=== PATIENT | male | born 1985 | race Two or more races ===

== ENCOUNTER 2021-05-21 22:42 | Emergency (ER) | payer MEDICAID, OTHER ==
[~2021-05-21] VITALS: Ht 175.3 cm; Wt 79.8 kg
--- NOTE | 2021-05-21 23:10 | NUR ---
BB RA FOR AGITATION, BIZARRE BEHAVIOR. PT GIVEN VERSED 10 IM ARTILLERY OFFICER BY RA. PT SEDATED UPON ARRIVAL. BREATHS EQUAL AND UNLABORED. PT TO ER BED AND CONNECTED TO MONITOR. PT VITAL SIGNS STABLE. WILL CONT TO MONITOR PT.
[2021-05-21] MEDS ORDERED: OLANZAPINE 10 MG VIAL IM ONE ×2 (23:30→23:51)
[2021-05-21 23:41] LABS: BASOPHILS # (AUTO) 0.1 K/uL (0.0-0.2); BASOPHILS % (AUTO) 0.7 % (0.0-2.0); EOSINOPHILS % (AUTO) 1.1 % (0.0-6.0); HEMATOCRIT 37 % (39-51); HEMOGLOBIN 12.2 g/dL (13.5-17.5); LYMPHOCYTES # (AUTO) 2.2 K/uL (0.8-4.8); LYMPHOCYTES % (AUTO) 25.5 % (20.0-44.0); MEAN CORPUSCULAR HGB CONC 34 g/dl (31.0-36.0); MEAN CORPUSCULAR VOLUME 91 fL (80-96); MONOCYTES # (AUTO) 0.5 K/uL (0.1-1.30); NEUTROPHILS # (AUTO) 5.7 K/uL (1.8-8.9); NEUTROPHILS % (AUTO) 66.7 % (43.0-81.0); PLATELET COUNT (AUTO) 384 K/uL (150-450); RED BLOOD CELL COUNT(AUTO) 4.02 MIL/uL (4.5-6.0); WHITE BLOOD COUNT (AUTO) 8.6 K/uL (4.3-11.0)
[2021-05-21 23:43] LABS: BILIRUBIN,URINE NEGATIVE (NEGATIVE); COLOR,URINE YELLOW (YELLOW); LEUKOCYTE ESTERASE ,URINE NEGATIVE (NEGATIVE); NITRITE, URINE NEGATIVE (NEGATIVE); PH,URINE 5.5 (5.0-8.0); PROTEIN,URINE NEGATIVE (NEGATIVE); UGLUCOSE NEGATIVE (NEGATIVE); UROBILINOGEN,URINE 0.2 EU/dL (0.2)
--- NOTE | 2021-05-22 | NUR ---
PT MEDICATED ORDERED.
[2021-05-22 00:15] LABS: CALCIUM, SERUM 8.6 mg/dL (8.5-10.1); CARBON DIOXIDE 25 mmol/L (21-32); CHLORIDE 104 mmol/L (98-107); GLUCOSE 105 mg/dL (74-106); POTASSIUM 3.9 mmol/L (3.5-5.1); SODIUM SERUM 141 mmol/L (136-145); UREA NITROGEN, BLOOD 31 mg/dL (7-18)
[2021-05-22 00:19] LABS: ALANINE AMINOTRANSFERASE 39 U/L (12-78); ALBUMIN 3.6 g/dL (3.4-5.0); ALCOHOL, BLOOD 34 mg/dL (0-0); ALKALINE PHOSPHATASE 58 U/L (46-116); ASPARTATE AMINOTRANSFERASE 27 U/L (15-37); BILIRUBIN,DIRECT 0.1 mg/dL (0.0-0.2); BILIRUBIN,TOTAL 0.3 mg/dL (0.2-1.0); TOTAL PROTEIN, SERUM 7.5 g/dL (6.4-8.2)
[2021-05-22 00:23] LABS: ACETAMINOPHEN < 2 ug/ml (10-30)
--- NOTE | 2021-05-22 04:09 | NUR ---
PT RESTING IN [facility]. PROVIDE WITH JUICE AND WATER.
--- NOTE | 2021-05-22 06:10 | NUR ---
PATIENT AWAKE AND RESPONSIVE. AMBULATORY WITH STEADY GAITS. STABLE FOR DISCHARGE PER MD.
--- NOTE | 2021-05-22 06:11 | NUR ---
Patient discharged to home in stable condition. Written and verbal after care instructions given. Patient verbalizes understanding of instruction.
[2021-05-22 06:12] VITALS: BP 119/78
== END 2021-05-22 06:12 | disposition home or self-care (01) ==
LOC: ER 22:44
DX: F15.10 Other stimulant abuse, uncomplicated (principal); G93.41 Metabolic encephalopathy; Z59.00 Homelessness unspecified
CPT/HCPCS: 36415; 51702; 80048; 80076; 80143; 80307; 80320; 81003; 85025; 96372; 99284; J3490; G0480